=== PATIENT | male | born 1980 | race Caucasian/White ===

== ENCOUNTER 2018-01-23 23:58 | Emergency (ER) | payer MEDICARE, MEDICAID ==
[~2018-01-23] VITALS: Ht 167.6 cm; Wt 54.4 kg
[~2018-01-23 23:58] MED LIST: BUSP15TA60 PO; LITH600C4 PO; OLAN20TA17 PO
[2018-01-24 07:28] VITALS: BP 107/63
== END 2018-01-24 07:42 | disposition home or self-care (01) ==
LOC: ER 01-24 00:06
DX: J02.9 Acute pharyngitis, unspecified (principal); J20.9 Acute bronchitis, unspecified; F17.210 Nicotine dependence, cigarettes, uncomplicated; Z87.01 Personal history of pneumonia (recurrent)
CPT/HCPCS: 71045

== ENCOUNTER 2018-01-24 22:36 | Emergency (ER) | payer MEDICARE, MEDICAID ==
[~2018-01-24] VITALS: Ht 167.6 cm; Wt 63.5 kg
[2018-01-25 06:29] VITALS: BP 110/57
== END 2018-01-25 06:59 | disposition home or self-care (01) ==
LOC: ER 22:43
DX: S90.822A Blister (nonthermal), left foot, initial encounter (principal); F17.210 Nicotine dependence, cigarettes, uncomplicated; Z59.0 Homelessness; Z79.899 Other long term (current) drug therapy; X58.XXXA Exposure to other specified factors, initial encounter; Y93.01 Activity, walking, marching and hiking; Y99.8 Other external cause status; Y92.89 Other specified places as the place of occurrence of the external cause

== ENCOUNTER 2018-03-19 18:57 | Emergency (ER) | payer MEDICARE, MEDICAID ==
[~2018-03-19] VITALS: Ht 172.7 cm; Wt 52.2 kg
[2018-03-19 19:09] VITALS: BP 130/97
== END 2018-03-19 23:17 | disposition left against medical advice (07) ==
LOC: EDUNIT# 18:57 → ER 19:00
DX: S01.91XA Laceration without foreign body of unspecified part of head, initial encounter (principal); Z53.21 Procedure and treatment not carried out due to patient leaving prior to being seen by health care provider; X79.XXXA Intentional self-harm by blunt object, initial encounter; Y93.89 Activity, other specified; Y92.89 Other specified places as the place of occurrence of the external cause; Y99.8 Other external cause status

== ENCOUNTER 2019-02-20 23:28 | Emergency (ER) | payer MEDICARE, MEDICAID ==
[~2019-02-20] VITALS: Ht 180.3 cm; Wt 77.1 kg
[~2019-02-20 23:28] MED LIST changes: -OLAN20TA17 PO; +OLAN20TA30 PO
[2019-02-20 23:50] VITALS: BP 117/64
[2019-02-21 01:47] LABS: Alcohol, Urine < 3.0 mg/dL (0-5); Amphetamine Screen, Urine POSITIVE (NEGATIVE); Barbiturate Scree,Urine NEGATIVE (NEGATIVE); Benzodiazephine Screen, Urine NEGATIVE (NEGATIVE); Cannabinoid Screen, Urine NEGATIVE (NEGATIVE)
[2019-02-21 01:54] LABS: Cocaine Screen, Urine NEGATIVE (NEGATIVE); Opiate Scree,Urine NEGATIVE (NEGATIVE); Phencyclidine Screen, Urine NEGATIVE (NEGATIVE)
[2019-02-21 02:49] LABS: Basophils # (auto) 0.1 uL; Basophils % (auto) 0.7 % (0.0-2.0); Eosinophils # (auto) 0.2 uL; Eosinophils % (auto) 2.1 % (0.0-7.0); Hematocrit 37.7 % (41.0-53.0); Lymphocytes # (auto) 1.8 uL; Lymphocytes % (auto) 19.6 % (10.0-50.0); Mean Corpuscular Hemoglobin 32.2 pg (28.0-32.0); Mean Corpuscular Hgb Conc. 34.5 g/dL (32.0-36.0); Mean Corpuscular Volume 93.5 fL (80.0-100.0); Monocytes # (auto) 0.9 uL; Neutrophils # (auto) 6.3 uL; Neutrophils % (auto) 67.6 % (37.0-80.0); Nucleated Red Blood Cells % 0.1 %; Platelet Count (auto) 380 10^3/uL (140-450); Red Blood Cells 4.04 10^6/uL (4.5-5.90); Red Cell Distribution Width 13.1 % (11.8-14.3); White Blood Cell 9.3 10^3/uL (4.4-10.8)
[2019-02-21 03:06] LABS: Albumin 3.4 g/dL (3.4-5.0); Anion Gap 5 (5-15); BUN/Creatinine Ratio 13.8; Blood Urea Nitrogen 9 mg/dL (7-18); Calcium 8.2 mg/dL (8.5-10.1); Carbon Dioxide 27 mmol/L (21-32); Chloride 105 mmol/L (98-107); GFR African American 177 mL/min; GFR Non-African American 146 mL/min; Glucose 89 mg/dL (74-106); Magnesium 2.5 mg/dL (1.6-2.6); Sodium 137 mmol/L (136-145)
[2019-02-21 03:11] LABS: Alanine Aminotransferase 38 U/L (16-61); Alkaline Phosphatase 114 U/L (45-117); Aspartate Aminotransferase 30 U/L (15-37); Bilirubin, Total 0.3 mg/dL (0.2-1.0); Total Protein 7.2 g/dL (6.4-8.2)
== END 2019-02-21 04:29 | disposition left against medical advice (07) ==
LOC: EDBD 23:28 → ER 23:32 → EDUNIT# 23:32 → EDBD 23:32 → ER 02-21 04:29
DX: F41.9 Anxiety disorder, unspecified (principal); Z53.21 Procedure and treatment not carried out due to patient leaving prior to being seen by health care provider
CPT/HCPCS: 36415; 80053; 80307; 83735; 84484; 85025

== ENCOUNTER 2019-04-02 14:58 | Emergency (ER) | payer MEDICARE, MEDICAID ==
[~2019-04-02] VITALS: Ht 162.6 cm; Wt 54.4 kg
[2019-04-02 15:25] VITALS: BP 108/64
== END 2019-04-02 16:16 | disposition home or self-care (01) ==
LOC: ER 14:58
DX: K14.9 Disease of tongue, unspecified (principal); F17.210 Nicotine dependence, cigarettes, uncomplicated; Z59.0 Homelessness; Z79.899 Other long term (current) drug therapy

== ENCOUNTER 2020-07-08 19:30 | Emergency (ER) | payer MEDICARE, MEDICAID ==
[~2020-07-08] VITALS: Ht 167.6 cm; Wt 74.8 kg
[2020-07-08 20:35] VITALS: BP 108/76
[2020-07-08] MEDS ORDERED: LIDOCAINE 1% HCL (LOCAL ANESTH.) INJ 20ML MDV ID ONE (20:45)
[2020-07-08] MEDS ORDERED: NEOMYCIN-BACITRACIN-POLYM UNITDOSE PKG TOP OINT TOP ONE (20:45)
[2020-07-08] MEDS ORDERED: cefTRIAXone SOD 1,000 MG VL IM ONE (21:45)
[2020-07-08] MEDS ORDERED: TETANUS-DIPTH-ACEL PERTUSSIS 0.5ML SYR Tdap IM ONE (22:30)
[2020-07-09] MEDS ORDERED: AMOXICILLIN/CLAVUL 875 MG TAB PO ONE (03:15)
== END 2020-07-09 06:48 | disposition home or self-care (01) ==
LOC: EDUNIT# 19:30 → ER 19:30 → EDBD 19:30 → ER 07-09 06:48
DX: S01.112A Laceration without foreign body of left eyelid and periocular area, initial encounter (principal); F31.9 Bipolar disorder, unspecified; F17.210 Nicotine dependence, cigarettes, uncomplicated; Z59.0 Homelessness; Y04.0XXA Assault by unarmed brawl or fight, initial encounter; Y93.89 Activity, other specified; Y92.89 Other specified places as the place of occurrence of the external cause; Y99.8 Other external cause status
CPT/HCPCS: 12013; 70486; 90471; 90715; 96372; 99284; J0696; J2001